=== PATIENT | female | born 1965 | race Two or more races ===

== ENCOUNTER 2018-03-27 11:44 | Emergency (ER) | payer MEDICAID, OTHER ==
[~2018-03-27] VITALS: Ht 165.1 cm; Wt 72.6 kg
[2018-03-27 11:48] VITALS: BP 123/74
== END 2018-03-27 14:07 | disposition home or self-care (01) ==
LOC: ER 11:44 → EDBD 11:44 → ER 14:07
DX: M79.661 Pain in right lower leg (principal); G89.29 Other chronic pain
CPT/HCPCS: 73590